=== PATIENT | female | born 1945 | race African-American/Black ===

== ENCOUNTER 2017-05-24 11:49 | Observation (INO) | payer MEDICARE, BC ==
[2017-05-24 12:57] LABS: #Basophils 0.1 thou/uL (0.0-0.2); #Eosinphils 0.1 thou/uL (0.0-0.7); #Lymphocytes 1.8 thou/uL (1.20-3.40); #Monocytes 0.4 thou/uL (0.11-0.59); #Neutrophils 2.5 thou/uL (1.40-6.50); %Basophils 1.3 % (0.0-1.0); %Eosinophils 2.7 % (0.0-10.0); %Lymphocytes 36.9 % (21.0-51.0); %Monocytes 8.8 % (0.0-10.0); Hematocrit 35.8 % (36.0-47.0); Mean Platelet Volume 10.1 fL (7.4-10.4); Red Blood Cell (RBC) Count 4.13 mill/uL (4.20-5.40)
[2017-05-24 13:19] LABS: ALT (SGPT) 12 U/L (8-55); AST (SGOT) 19 U/L (5-34); Alkaline Phosphatase 118 U/L (40-150); Anion Gap 15 mmol/L (10-20); BUN (Urea Nitrogen) 9 mg/dL (9.8-20.1); Bilirubin, Total 0.4 mg/dL (0.2-1.2); CK (CPK) 54 U/L (29-168); Calc. Creatinine Clearance 0 mL/min (70-130); Calcium 8.6 mg/dL (7.8-10.44); Carbon Dioxide 22 mmol/L (23-31); Chloride 109 mmol/L (98-107); Estimated GFR-MDRD 82; Globulin 2.8 g/dL (2.4-3.5); Magnesium 1.8 mg/dL (1.6-2.6); Protein, Total 6.1 g/dL (6.0-8.3)
[2017-05-24 13:23] LABS: Troponin I Less than 0.010 ng/mL (< 0.028)
[2017-05-24] MEDS ORDERED: Acetaminophen 500 MG TAB ONE (13:31)
--- NOTE | 2017-05-24 13:44 | RAD ---
SINGLE VIEW OF THE CHEST 05/24/17 COMPARISON: 05/25/16 HISTORY: Headache. The patient fell last night. Syncope. FINDINGS: Single view of the chest shows a normal sized cardiomediastinal silhouette. There is no evidence of consolidation, mass, or pleural effusion. Degenerative changes are seen in the spine. Surgical clips are seen at the cervicothoracic junction and near the gastroesophageal junction. IMPRESSION: No evidence of acute cardiopulmonary disease. POS: [facility]
--- NOTE | 2017-05-24 13:51 | CT ---
CT OF THE BRAIN WITHOUT CONTRAST 05/24/17 COMPARISON: 12/17/16 HISTORY: Headache after falling last night. Blurry vision. TECHNIQUE: Multiple contiguous axial images were obtained in a CT of the brain without contrast. FINDINGS: The brain is normal in morphology and attenuation without focal lesions or confluent areas of infarc tion. There is no evidence of hydrocephalus, intracranial hemorrhage or extra-axial fluid collection . The calvarium and overlying soft tissues are unremarkable. The visualized paranasal sinuses and mast oid air cells are well aerated. IMPRESSION: No evidence of acute intracranial abnormality. POS: [facility]
[2017-05-24] MEDS ORDERED: Morphine 10 MG/ML VIAL ONE (14:55)
[2017-05-24 16:01] VITALS: BMI 25.0
[2017-05-24 16:25] LABS: Troponin I Less than 0.010 ng/mL (< 0.028)
[2017-05-24] MEDS ORDERED: FLU VACC TS2017-18 (>65YR) 0.5 ML SYRINGE IM ONE (16:45)
[2017-05-24] MEDS ORDERED: Furosemide 20 MG TAB PO PRN (16:53)
[2017-05-24] MEDS ORDERED: Ondansetron ODT 4 MG TAB PO PRN (16:54)
[2017-05-24] MEDS: Acetaminophen/Codeine 30-300mg Tablet PO PRN (17:02)
--- NOTE | 2017-05-24 18:20 | RAD ---
EXAM: RIGHT FEMUR TWO VIEWS 05/24/17 HISTORY: Fall. Pain. Recent knee arthroplasty. FINDINGS: Mild bone demineralization of the distal femur. Uncomplicated right knee arthroplasty. No obvious ef fusion. No fracture. No cortical irregularity or periosteal reaction. IMPRESSION: No fracture. POS: [facility]
--- NOTE | 2017-05-24 18:22 | RAD ---
EXAM: RIGHT KNEE FOUR VIEWS 05/24/17 HISTORY: Fall. Total knee arthroplasty. COMPARISON: 12/17/16. FINDINGS: Mild bone demineralization of the distal femur. No evidence of complication with regard to the arthr oplasty. There is no fracture. There is a trace suprapatellar effusion. IMPRESSION: 1. Trace suprapatellar effusion. 2. Uncomplicated right knee arthroplasty. POS: [facility]
[2017-05-24 19:21] LABS: Troponin I Less than 0.010 ng/mL (< 0.028)
[2017-05-24] MEDS: traZODone HCl 50 MG TAB PO SCH (20:33)
[2017-05-24] MEDS: clonazePAM 0.5 MG TAB PO SCH (20:33)
[2017-05-24] MEDS: Pregabalin 75 MG CAP PO SCH (20:33)
[2017-05-24] MEDS: tiZANidine HCl 4 MG TAB PO PRN (20:33)
[2017-05-25] MEDS: Levothyroxine Sodium 125 MCG TAB PO SCH (04:22)
[2017-05-25] MEDS: Acetaminophen/Codeine 30-300mg Tablet PO PRN ×2 (04:22→11:30)
[2017-05-25] MEDS: Multivitamin W/ Minerals 1 TAB PO SCH (07:44)
[2017-05-25] MEDS: Amlodipine 5 MG TAB PO SCH (07:44)
[2017-05-25] MEDS: Pregabalin 50 MG CAP PO SCH ×2 (07:44→15:46)
[2017-05-25] MEDS: clonazePAM 0.5 MG TAB PO SCH ×2 (07:45→20:14)
[2017-05-25] MEDS: tiZANidine HCl 4 MG TAB PO PRN ×2 (07:50→20:14)
[2017-05-25] MEDS ORDERED: Morphine PF 1 MG/ML SYR IVP PRN (15:09)
[2017-05-25] MEDS ORDERED: Morphine 4 MG/ML VIAL SLOW IVP PRN (15:46)
[2017-05-25] MEDS: traZODone HCl 50 MG TAB PO SCH (20:14)
[2017-05-25] MEDS: Pregabalin 75 MG CAP PO SCH (20:14)
--- NOTE | 2017-05-25 20:52 | ULT ---
CAROTID DOPPLER ULTRASOUND: History: Syncope. Comparison: 05-26-16 Technique: Grayscale, color flow, doppler imaging with spectral waveform analysis performed of the c arotid vertebral arteries. FINDINGS: Right carotid: No significant atherosclerotic disease. Peak systolic velocity of the common carotid is 87.5 cm/sec. Peak systolic velocity internal carotid is 67.5 cm/sec. Systolic ICA/CCA ratio is 0. 8. Left carotid: No significant atherosclerotic disease. Peak systolic velocity of the common carotid a rtery is 85.2 cm/sec. Peak systolic velocity internal carotid is 65.3 cm/sec. Systolic ICA/CCA ratio is 0.8. Antegrade flow in the bilateral vertebral arteries. IMPRESSION: No ultrasound evidence of hemodynamically significant stenosis. POS: [facility]
--- NOTE | 2017-05-25 22:24 | HP ---
DATE OF ADMISSION: 05/24/2017 REASON FOR ADMISSION AND CHIEF COMPLAINT: Syncopal episode. HISTORY OF PRESENT ILLNESS: Ms. King is a 71-year-old -Serbian female with past medical history of hypertension, neuropathy, chronic back pain and hypothyroidism, who came because of patient passed out. The patient felt dizzy and passed out and fell down. The patient says she did not have any chest pain or shortness of breath before passing out, does not remember how long she was out; she thinks it was just a few minutes. When she woke up, she was on the floor and she had to drag herself to the bed and then called the family members. The patient had a total knee replacement of the right knee recently just about a few weeks ago and has been hurting more since she fell down. The pain is more in the right knee and also in the right leg, so the EMS was called and patient was brought to the emergency room. In the ER, the patient was evaluated and found to have normal EKG and cardiac enzymes. She is being admitted to rule out any cardiac arrhythmia or ND in view of her syncopal episode. The patient had syncopal episode last year and workup was done in the past. PAST MEDICAL HISTORY: 1. Hypertension. 2. Chronic back pain. 3. Neuropathy. 4. Hypothyroidism. 5. History of coronary artery disease. 6. History of headaches. 7. History of depression. PAST SURGICAL HISTORY: 1. Status post hysterectomy. 2. Status post neck surgery. 3. Status post total knee replacement, right knee, surgery done recently. 4. Status post cholecystectomy. 5. Status post appendectomy. 6. Status post lumbar spine and cervical spine surgery. CURRENT MEDICATIONS: The patient is on Tylenol with codeine 1 q.i.d. p.r.n., amlodipine 5 mg daily, clonazepam 0.5 mg b.i.d., colestipol 1 gram daily, Lasix 20 mg daily p.r.n., levothyroxine 25 mcg daily, multivitamin daily, Lyrica 100 mg in the morning and 150 at bedtime, propranolol 80 mg daily, tizanidine t.i.d. 4 mg, trazodone 100 mg at bedtime. ALLERGIES: NKDA. FAMILY HISTORY: Nothing of interest. SOCIAL HISTORY: The patient lives with family. No history of smoking. No history of alcohol intake. REVIEW OF SYSTEMS: Cardiovascular: No chest pain. No shortness of breath. Respiratory: No fever or cough. Gastrointestinal: No nausea, no vomiting, no abdominal pain. Genitourinary: No dysuria or hematuria. Central nervous system: Has headache, no dizziness. PHYSICAL EXAMINATION: GENERAL: The patient is alert, awake, oriented x3. VITAL SIGNS: Temperature 98, pulse 60, respirations 20, blood pressure 180/60. HEENT: Head is normocephalic, atraumatic. Pupils are equal and reactive to light. Nasopharynx is pale and dry. Hard and soft palate, no lesions seen. SKIN: Skin turgor decreased. NECK: Supple. No JVD. LUNGS: Bilateral air entry present, no rales, no rhonchi. CARDIAC: S1, S2 regular. ABDOMEN: Soft, no distention, no tenderness. Normal bowel sounds present. RECTAL: Deferred. CENTRAL NERVOUS SYSTEM: The patient is alert, awake, oriented x3. Motor system power 4/5 in all extremities. Deep tendon reflexes 2+ bilaterally. Plantars downgoing. Sensory intact. EXTREMITIES: Right knee area mild swelling present. Surgical incisions present. Mild erythema is markedly tender. Range of movements markedly decreased. LABORATORY AND X-RAY FINDINGS: CBC shows WBC 5, hemoglobin 11.9, hematocrit 35 , platelets 73. Metabolic panel: Sodium 143, potassium 3.4, chloride 109, CO2 of 20, urea nitrogen 9, creatinine 0.9, glucose 82. CK-MB is 0.7, troponin I less than 0.010. Chest x-ray negative. CT brain, no evidence of acute intracranial abnormality. Knee x-ray showed trace suprapatellar effusion and uncomplicated right knee arthroplasty. Femur x-ray, no fracture. EKG shows normal sinus rhythm, no acute ST-T wave changes seen. ASSESSMENT: 1. Syncope, acute, rule out myocardial infarction, rule out cardiac arrhythmia. 2. Right knee pain. 3. Status post total knee replacement, right. 4. Hypertension. 5. Anxiety disorder. 6. Chronic pain. 7. Hypothyroidism. PLAN: 1. Vital signs q.4 hours. 2. Activity: As tolerated. 3. Allergies: NKDA. 4. Diet: Regular. 5. Troponin I q.8 hours x2. 6. Continue home medication. 7. Echocardiogram. 8. Carotid Doppler studies. 9. Morphine p.r.n. MTDD
[2017-05-26] MEDS: Acetaminophen/Codeine 30-300mg Tablet PO PRN ×2 (00:49→08:31)
[2017-05-26] MEDS: Levothyroxine Sodium 125 MCG TAB PO SCH (05:43)
[2017-05-26] MEDS: Pregabalin 50 MG CAP PO SCH ×2 (08:31→11:54)
[2017-05-26] MEDS: clonazePAM 0.5 MG TAB PO SCH (08:32)
[2017-05-26] MEDS: Multivitamin W/ Minerals 1 TAB PO SCH (08:32)
[2017-05-26] MEDS: Amlodipine 5 MG TAB PO SCH (08:33)
[2017-05-26 11:08] VITALS: BP 133/63; TEMP 98.4
[2017-05-26] MEDS: tiZANidine HCl 4 MG TAB PO PRN (11:54)
--- NOTE | 2017-05-27 22:36 | DIS ---
DATE OF ADMISSION: 05/24/2017 DATE OF DISCHARGE: 05/26/2017 ADMITTING DIAGNOSES: 1. Syncopal episode, rule out myocardial infarction, rule out cardiac arrhythmia. 2. Right knee pain. 3. Status post total knee replacement, right, few weeks ago. 4. Hypertension. 5. Anxiety disorder. 6. Chronic back pain. 7. Hypothyroidism. FINAL DIAGNOSES: 1. Syncopal episode, acute, no evidence of acute myocardial infarction, no evidence of cardiac arrh ythmia. 2. Right knee pain, improving. 3. Status post total knee replacement, right side few weeks ago. 4. Hypertension. 5. Anxiety disorder. 6. Chronic pain. 7. Hypothyroidism. BRIEF SUMMARY OF HOSPITAL COURSE: Ms. King is a 71-year-old -[place] female who came wit h chest pain in the retrosternal area, sharp in nature, and associated with some shortness of breath , no diaphoresis, but has some dizziness. The patient was admitted to rule out myocardial infarctio n, also complained of right knee pain. She had total knee placement done a few weeks [facility] after which she started to hurt more in the right knee. Right knee was mildly swollen, but no erythema, no evidence of infection. X-ray of the right knee showed knee replacement in posit ion, no evidence of any marked effusion. The patient was given pain medication and ultimately her knee pain improved. The patient had serial cardiac enzymes done. The second serial troponin was le ss than 0.010, third one also less than 0.010. The patient was started on medications and he tolera sharan medications. Denies evidence of any chest pain. In view of improvement, the patient is dischar [facility] and echocardiogram and Doppler study were also done. Carotid Doppler study revealed no evidence of any hemodynamically significant stenosis. Echocardiogram was reported as normal LV function wit h ejection fraction of 65% and evidence of diastolic dysfunction. So, the patient is being discharg ed home. At the time of discharge, she was stable. Her vital signs were stable. Lungs clear. Hea rt sounds regular. Abdomen soft, nontender. Bowel sounds present. DISCHARGE MEDICATIONS: Include multivitamin daily, Lyrica 100 mg b.i.d., and 150 at bedtime, tizani dine 4 mg t.i.d., clonazepam 0.5 mg b.i.d., amlodipine 5 mg daily, Zofran p.r.n., trazodone 100 mg a t bedtime, Lasix 20 mg daily p.r.n., Tylenol with Codeine 1 q.i.d. p.r.n., omeprazole 40 mg daily, l evothyroxine 125 mcg daily, propranolol 80 mg daily. FOLLOWUP: The patient will come for followup in 2 weeks.
== END 2017-05-26 12:02 | disposition home or self-care (01) ==
LOC: ERS 11:49 → 2SW 15:29
PROVIDERS: ADMIT Internal Medicine; ATTEND Internal Medicine
DX: R55 Syncope and collapse (principal); M25.561 Pain in right knee; I10 Essential (primary) hypertension; F41.9 Anxiety disorder, unspecified; G89.29 Other chronic pain; E03.9 Hypothyroidism, unspecified; R07.2 Precordial pain; G62.9 Polyneuropathy, unspecified; I25.10 Atherosclerotic heart disease of native coronary artery without angina pectoris; F32.9 Major depressive disorder, single episode, unspecified; Z79.899 Other long term (current) drug therapy; Z96.651 Presence of right artificial knee joint; Z90.49 Acquired absence of other specified parts of digestive tract; Z90.710 Acquired absence of both cervix and uterus; Z98.890 Other specified postprocedural states
CPT/HCPCS: 70450; 71010; 73552; 73564; 80053; 82550; 82553; 83735; 84484 ×2; 85025; 93005; 93306; 93880; 96374; 96376; 99285; G0378; 36415; J2270

== ENCOUNTER 2017-09-23 11:44 | Outpatient (CLI) | payer MEDICARE, BC | END 2017-09-23 11:45 | disposition home or self-care (01) | LOC: BICMAMMO 11:44 | PROVIDERS: ATTEND Obstetrics & Gynecology | DX: Z12.31 Encounter for screening mammogram for malignant neoplasm of breast (principal) | CPT/HCPCS: 77063; 77067 ==

== ENCOUNTER 2017-11-03 10:18 | Outpatient (CLI) | payer MEDICARE, BC | END 2017-11-03 10:19 | disposition home or self-care (01) | LOC: BICMRI 10:18 | PROVIDERS: ATTEND Anesthesiology Pain Medicine | DX: M48.00 Spinal stenosis, site unspecified (principal); M47.892 Other spondylosis, cervical region; Z98.1 Arthrodesis status | CPT/HCPCS: 72052; 72141 ==

== ENCOUNTER 2018-03-05 14:36 | Emergency (ER) | payer MEDICARE, BC ==
[2018-03-05 15:25] LABS: #Basophils 0.1 thou/uL (0.0-0.2); #Eosinphils 0.1 thou/uL (0.0-0.7); #Lymphocytes 1.3 thou/uL (1.20-3.40); #Monocytes 0.4 thou/uL (0.11-0.59); #Neutrophils 2.7 thou/uL (1.40-6.50); %Basophils 1.5 % (0.0-1.0); %Eosinophils 1.8 % (0.0-10.0); %Lymphocytes 28.9 % (21.0-51.0); %Monocytes 8.4 % (0.0-10.0); %Neutrophils 59.4 % (42.0-75.0); Hemoglobin 11.5 g/dL (12.0-16.0); Mean Corpuscular HGB CONC 32.8 g/dL (32.0-36.0); Mean Corpuscular Hemoglobin 28.1 pg (27.0-31.0); Mean Corpuscular Volume 85.8 fL (78.0-98.0); Mean Platelet Volume 9.8 fL (7.4-10.4); Platelet Count 161 thou/uL (130-400); RBC Distribution Width 12.5 % (11.5-14.5); Red Blood Cell (RBC) Count 4.07 mill/uL (4.20-5.40); White Blood Cell (WBC) Count 4.5 thou/uL (4.8-10.8)
--- NOTE | 2018-03-05 15:30 | RAD ---
PORTABLE CHEST 1 VIEW: Date: 03/05/18 Time: 1446 hours HISTORY: Fall. Pain in head, neck, and back. Bradycardia. FINDINGS: Comparison made with exam of 05/24/17. The heart size is normal. The aorta is tortuous. No confluent areas of consolidation, pneumothorax, o r pleural effusions are seen. There are postop changes in the low neck. IMPRESSION: No acute process. POS: [facility]
[2018-03-05 15:39] LABS: ALT (SGPT) 19 U/L (8-55); AST (SGOT) 25 U/L (5-34); Albumin 3.1 g/dL (3.4-4.8); Alkaline Phosphatase 118 U/L (40-150); Anion Gap 13 mmol/L (10-20); BUN (Urea Nitrogen) 15 mg/dL (9.8-20.1); Bilirubin, Total 0.3 mg/dL (0.2-1.2); CK (CPK) 62 U/L (29-168); Calc. Creatinine Clearance 0 mL/min (70-130); Calcium 7.8 mg/dL (7.8-10.44); Carbon Dioxide 22 mmol/L (23-31); Chloride 108 mmol/L (98-107); Estimated GFR-MDRD 63; Globulin 1.9 g/dL (2.4-3.5); Glucose 108 mg/dL (83-110); Potassium 3.9 mmol/L (3.5-5.1); Sodium 139 mmol/L (136-145)
[2018-03-05 15:43] LABS: Troponin I Less than 0.010 ng/mL (< 0.028)
[2018-03-05 16:46] LABS: Bilirubin Negative (Negative); Blood, Urine Negative (Negative); Clarity CLOUDY (Clear); Glucose, Urine (Dipstick) Negative (Negative); Leukocyte Small (Negative); Nitrite Negative (Negative); Protein, Urine (Dipstick) Negative (Neg-Trace); Specific Gravity, Urine 1.019 (1.002-1.036); Urobilinogen 0.2 mg/dL (0.2-1.0); pH, Urine 6.5 (5.0-9.0)
[2018-03-05 16:50] LABS: Hyaline Casts/LPF 0-3 HYALINE CAST LPF (0-3 Hyaline); Pathc Cast-AUWi Flag 0.58 (0-2.49)
[2018-03-05 17:06] LABS: Bacteria/HPF 3+ HPF (None Seen); Renal Epithelial None Seen HPF (0-3); Transitional Epithelial NONE SEEN HPF (0-3)
[2018-03-05] MEDS ORDERED: cefTRIAXone\\ROCEPHIN 1 GM in Sodium Chloride 0.9% 100 ML IVPB SCH (18:00)
--- NOTE | 2018-03-07 16:38 | EKG ---
Test Reason : Blood Pressure : / mmHG Vent. Rate : 056 BPM Atrial Rate : 056 BPM P-R Int : 162 ms QRS Dur : 082 ms QT Int : 492 ms P-R-T Axes : 060 009 001 degrees QTc Int : 474 ms Sinus bradycardia Septal infarct , age undetermined Abnormal ECG Confirmed by IDA HERNANDEZ ([id number]), sports editor TRE SKINNER ([id number]) on 03/07/2018 4:37:29 PM Referred By: Confirmed By:IDA HERNANDEZ
== END 2018-03-05 19:50 | disposition home or self-care (01) ==
LOC: ERS 14:36
DX: N39.0 Urinary tract infection, site not specified (principal); I10 Essential (primary) hypertension; F41.9 Anxiety disorder, unspecified; Z79.899 Other long term (current) drug therapy; Z86.73 Personal history of transient ischemic attack (TIA), and cerebral infarction without residual deficits
CPT/HCPCS: 36415; 71045; 80053; 81003; 81015; 82550; 82553; 84484; 85025; 87086; 93005; 96374; J0696; J7050

== ENCOUNTER 2018-03-25 10:23 | Outpatient (CLI) | payer MEDICARE, BC ==
--- NOTE | 2018-03-25 11:17 | RAD ---
LUMBAR SPINE THREE VIEWS: 03/25/2018 HISTORY: Lumbar degenerative disk disease. COMPARISON: 03/10/2013 FINDINGS: Postsurgical changes are again seen, related to posterior fusion at the L4-L5 level, with bipedicular screws and posterior rods transfixing this level. An intradiskal prosthesis is again seen, overlyin g the right lateral aspect of the intervertebral disk space at this level. No hardware complication is visualized. Vertebral body heights are within normal limits, and no fracture or subluxation is ap preciated. There are scattered osteophytes within the lumbar spine, as well as facet degenerative ch anges, greatest at the lumbosacral junction. Multiple surgical clips again overly the abdomen. Vasc ular calcifications are seen overlying the pelvis. There has been no significant interval change fro m the prior exam. IMPRESSION: Post surgical changes related to posterior fusion at the L4-L5 level with mild degenerative changes i n the lumbar spine. POS: [facility]
--- NOTE | 2018-03-25 11:58 | RAD ---
3 VIEWS CERVICAL SPINE: Date: 03/25/18 HISTORY: Spondylosis of cervical region. COMPARISON: 05/30/11. FINDINGS: Again noted is anterior cervical fusion at C5-6 level with anterior plate and screws again seen with associated intradiscal prosthesis. No hardware complication is seen. C1 to cervicothoracic junction i s seen on the lateral view. No fracture or subluxation is seen. Scattered osteophytes are seen anteri radhika within the cervical spine. Prevertebral soft tissues are within normal limits. Multiple surgical clips overlie the anterior aspect of the neck. IMPRESSION: 1. Stable postsurgical changes of the cervical spine with anterior cervical fusion at the C5-6 level . 2. Mild degenerative changes in the cervical spine. POS: [facility]
== END 2018-03-25 10:24 | disposition home or self-care (01) ==
LOC: RAD 10:23
PROVIDERS: ATTEND Nurse Practitioner Family
DX: M51.36 Other intervertebral disc degeneration, lumbar region (principal); M47.812 Spondylosis without myelopathy or radiculopathy, cervical region; Z98.1 Arthrodesis status
CPT/HCPCS: 72040; 72100

== ENCOUNTER 2018-03-28 10:46 | Emergency (ER) | payer MEDICARE, BC ==
[2018-03-28] MEDS ORDERED: Ibuprofen 200 MG TAB ONE (11:24)
--- NOTE | 2018-03-28 12:36 | RAD ---
PORTABLE CHEST: Date: 03/28/18 PROVIDED CLINICAL HISTORY: Back pain. FINDINGS: Comparison with 03/05/18. Cardiac and mediastinal silhouette is within normal limits. Lungs appear clear. No pleural fluid or p neumothorax apparent. IMPRESSION: No evidence for an acute cardiopulmonary process. POS: [facility]
--- NOTE | 2018-03-28 12:40 | RAD ---
2 VIEWS RIGHT HIP: Date: 03/28/18 PROVIDED CLINICAL HISTORY: Right hip pain. FINDINGS: There is no evidence for fracture or other acute osseous abnormality. If there is persistent clinical concern, conservative management and follow-up imaging are advised. IMPRESSION: As above. POS: [facility]
[2018-03-28] MEDS ORDERED: HYDROcodone/Acetaminophen 7.5/325 mg Tablet ONE (13:07)
[2018-03-28] MEDS ORDERED: Ketorolac Tromethamine 30 MG/ML VIAL ONE (15:04)
--- NOTE | 2018-04-04 11:18 | EKG ---
Test Reason : Blood Pressure : / mmHG Vent. Rate : 063 BPM Atrial Rate : 063 BPM P-R Int : 140 ms QRS Dur : 068 ms QT Int : 378 ms P-R-T Axes : 045 000 031 degrees QTc Int : 386 ms Normal sinus rhythm Possible Left atrial enlargement Septal infarct , age undetermined Abnormal ECG Confirmed by EDENILSON MOODY M.D. ([id number]), tape editor JOSEPHINE SALMERON ([id number]) on 04/04/2018 11:18:23 AM Referred By: Confirmed By:EDENILSON MOODY M.D.
== END 2018-03-28 15:22 | disposition home or self-care (01) ==
LOC: ERS 10:46
DX: M54.5 Low back pain (principal); M25.551 Pain in right hip; F41.9 Anxiety disorder, unspecified; I10 Essential (primary) hypertension; Z79.899 Other long term (current) drug therapy; W18.30XA Fall on same level, unspecified, initial encounter
CPT/HCPCS: 71045; 93005; 96372; J1885

== ENCOUNTER 2018-12-27 13:37 | Emergency (ER) | payer MEDICARE, BC ==
[2018-12-27] MEDS ORDERED: Ketorolac Tromethamine 30 MG/ML VIAL ONE (14:18)
[2018-12-27] MEDS ORDERED: HYDROcodone/Acetaminophen 7.5/325 mg Tablet ONE (14:18)
== END 2018-12-27 16:54 | disposition home or self-care (01) ==
LOC: ERS 13:37
DX: M54.41 Lumbago with sciatica, right side (principal); I10 Essential (primary) hypertension; Z86.73 Personal history of transient ischemic attack (TIA), and cerebral infarction without residual deficits; F41.9 Anxiety disorder, unspecified; Z79.899 Other long term (current) drug therapy
CPT/HCPCS: 96372; J1885

== ENCOUNTER 2019-01-08 19:07 | Emergency (ER) | payer MEDICARE, BC ==
[2019-01-08] MEDS ORDERED: Morphine 4 MG/ML VIAL ONE (19:23)
[2019-01-08] MEDS ORDERED: Lidocaine 1% w/Epinephrine 1:100K 20 ML VIAL ONE (19:23)
[2019-01-08 19:57] LABS: #Eosinphils 0.1 thou/uL (0.0-0.7); #Lymphocytes 1.5 thou/uL (1.20-3.40); #Monocytes 0.4 thou/uL (0.11-0.59); %Basophils 0.2 % (0.0-1.0); %Eosinophils 1.2 % (0.0-10.0); %Lymphocytes 25.3 % (21.0-51.0); %Monocytes 6.4 % (0.0-10.0); %Neutrophils 66.8 % (42.0-75.0); Hemoglobin 12.4 g/dL (12.0-16.0); Mean Corpuscular HGB CONC 32.9 g/dL (32.0-36.0); Mean Corpuscular Volume 85.2 fL (78.0-98.0); Mean Platelet Volume 11.7 fL (7.4-10.4); Platelet Count 142 thou/uL (130-400); RBC Distribution Width 12.6 % (11.5-14.5); Red Blood Cell (RBC) Count 4.42 mill/uL (4.20-5.40); White Blood Cell (WBC) Count 6.1 thou/uL (4.8-10.8)
--- NOTE | 2019-01-08 20:10 | CT ---
Exam: Cervical spine CT scan without IV contrast: HISTORY: Injury from a mechanical fall FINDINGS: Anterior cervical fusion changes at C5-C6. Extensive surgical clips in the anterior neck with resulta nt artifact. Generalized cervical spondylosis. No evidence for acute fracture or facet dislocation. IMPRESSION: No evidence for acute fracture or facet dislocation. Generalized cervical spondylosis. Anterior cervi greg fusion changes.
--- NOTE | 2019-01-08 20:11 | CT ---
HEAD CT WITHOUT CONTRAST: 01/08/19 HISTORY: Fall. Pain. COMPARISON: 05/24/17. FINDINGS: No parenchymal hemorrhage. No extra-axial hematoma. No midline shift. Basilar cisterns are patent. Brain volume, age appropriate. Cortical pena-white matter differentiation is preserved. Ventricles and sulci are patent and symmetric. Anterior midline scalp hematoma. Calvarium is intact. Adequate aeration of the sinuses and mastoid air cells. IMPRESSION: No intracranial posttraumatic sequela. POS: [facility]
--- NOTE | 2019-01-08 20:20 | RAD ---
Chest one view: HISTORY: Injury from a fall COMPARISON: 03/28/2018 FINDINGS: Cervical collar overlies the cervical thoracic junction. Surgical clips in the anterior neck. Postop anterior cervical fusion changes lower cervical spine. Heart size is normal. The lungs are clear. IMPRESSION: No significant acute intrathoracic disease. Atherosclerosis of the aorta.
--- NOTE | 2019-01-08 20:23 | RAD ---
EXAM: AP pelvis one view: HISTORY: Injury from a fall COMPARISON: None FINDINGS: Degenerative changes. No acute fracture or dislocation or other significant acute osseous abnormality. IMPRESSION: No significant acute process.
[2019-01-08] MEDS ORDERED: Adacel (T-DAP) 0.5 ML SYRINGE ONE (20:24)
--- NOTE | 2019-01-08 20:24 | RAD ---
EXAM: Right wrist 2 views: HISTORY: Injury from a fall COMPARISON: None FINDINGS: Bony demineralization. Degenerative changes. No acute fracture or dislocation or other significant acute osseous abnormality. IMPRESSION: No significant acute process.
--- NOTE | 2019-01-08 20:25 | RAD ---
LEFT KNEE FOUR VIEWS: 01/08/19 HISTORY: Fall, pain. FINDINGS: Bone excrescence involving the medial distal femur may represent an osteochondroma. Joint spaces are preserved. No fracture or malalignment. IMPRESSION: 1. No posttraumatic change. 2. Possible incidental osteochondroma of the medial distal femur. POS: [facility]
[2019-01-08] MEDS ORDERED: Ketorolac Tromethamine 30 MG/ML VIAL ONE (21:20)
[2019-01-08 21:23] LABS: Bilirubin Small (Negative); Blood, Urine Negative (Negative); Clarity TURBID (Clear); Glucose, Urine (Dipstick) Negative (Negative); Leukocyte Small (Negative); Nitrite Negative (Negative); Protein, Urine (Dipstick) Negative (Neg-Trace); Urobilinogen 0.2 mg/dL (0.2-1.0)
[2019-01-08 21:25] LABS: Hyaline Casts/LPF 7-10 HYALINE CAST LPF (0-3 Hyaline); Pathc Cast-AUWi Flag 0.95 (0-2.49)
[2019-01-08 21:45] LABS: RBC/HPF 0-3 HPF (0-3)
[2019-01-08 21:46] LABS: Bacteria/HPF Rare-Few HPF (None Seen); Crystals/HPF 3+ CA OXALATE HPF (Negative)
[2019-01-08 21:53] LABS: Albumin 3.7 g/dL (3.4-4.8)
[2019-01-08 21:54] LABS: Calcium 8.8 mg/dL (7.8-10.44); Chloride 109 mmol/L (98-107); Potassium 3.3 mmol/L (3.5-5.1); Sodium 143 mmol/L (136-145)
[2019-01-08 21:55] LABS: Globulin 2.4 g/dL (2.4-3.5); Glucose 82 mg/dL (83-110); Protein, Total 6.1 g/dL (6.0-8.3)
[2019-01-08 21:57] LABS: Anion Gap 14 mmol/L (10-20); Bilirubin, Total 0.4 mg/dL (0.2-1.2); Carbon Dioxide 23 mmol/L (23-31)
[2019-01-08 21:58] LABS: Alkaline Phosphatase 136 U/L (40-150); Calc. Creatinine Clearance 0 mL/min (70-130); Estimated GFR-MDRD 48
[2019-01-08 21:59] LABS: BUN (Urea Nitrogen) 19 mg/dL (9.8-20.1)
[2019-01-08 22:00] LABS: AST (SGOT) 24 U/L (5-34)
[2019-01-08 22:01] LABS: ALT (SGPT) 24 U/L (8-55)
== END 2019-01-09 00:24 | disposition home or self-care (01) ==
LOC: ERS 19:07
DX: S06.0X9A Concussion with loss of consciousness of unspecified duration, initial encounter (principal); S01.111A Laceration without foreign body of right eyelid and periocular area, initial encounter; S80.02XA Contusion of left knee, initial encounter; I10 Essential (primary) hypertension; F41.9 Anxiety disorder, unspecified; Z79.899 Other long term (current) drug therapy; W18.30XA Fall on same level, unspecified, initial encounter
CPT/HCPCS: 36415; 70450; 71045; 72125; 72170; 80053; 81003; 81015; 84484; 85025; 90471; 90715; 93005; 96372; 96374; J1885; J2001; J2270

== ENCOUNTER 2019-08-06 13:34 | Outpatient (CLI) | payer MEDICARE, BC ==
--- NOTE | 2019-08-06 15:06 | RAD ---
LEFT ANKLE 3 VIEWS: Date: 08/06/2019 HISTORY: Ankle pain. COMPARISON: None. FINDINGS: There are mild soft tissue phleboliths. No acute displaced fracture or malalignment. Mild narrowing o f the ankle joint itself. Small dorsal and plantar calcaneal spurs. Bones are demineralized. IMPRESSION: No acute osseous abnormality. Chronic findings. POS: [facility]
--- NOTE | 2019-08-06 15:12 | MRI ---
MRI CERVICAL SPINE WITHOUT CONTRAST: Date: 08/06/2019 HISTORY: M54.12 cervical radicular pain. History of surgery. COMPARISON: CT cervical spine 01/08/19. FINDINGS: The cerebellar tonsils terminate at the level of the foramen magnum. The cord signal is normal. No co rd impingement. No marrow infiltrative process. There is narrowing of the atlantodental interval. No facet capsular injury. No intraspinous or supraspinous ligamentous injury. The prevertebral soft t issues are normal. Levels are as follow: C2-3: Normal disc. No neural foraminal or spinal canal narrowing. C3-4: Relatively normal disc for age. No neural foraminal or spinal canal narrowing. C4-5: Mild degenerative disc space height loss. There is a broad based posterior disc osteophyte com plex, very mild. Mild uncinate process hypertrophy. No neural foraminal or spinal canal narrowing. C5-6: Prior ACDF with interbody fusion. No neural foraminal or spinal canal narrowing. C6-7: Mild disc desiccation and height loss. Mild uncinate process hypertrophy. No neural foraminal or spinal canal narrowing. C7-T1: Mild disc desiccation. 1 mm anterolisthesis from hypertrophic facet arthrosis. No neural fora solis or spinal canal narrowing. IMPRESSION: 1. Intact surgical hardware. 2. No significant neural foraminal or spinal canal narrowing is appreciated on this exam at any leve l. POS: [facility]
== END 2019-08-06 13:35 | disposition home or self-care (01) ==
LOC: TBSIIMAG 13:34
PROVIDERS: ATTEND Nurse Practitioner Family
DX: M25.572 Pain in left ankle and joints of left foot (principal); M54.12 Radiculopathy, cervical region; Z98.1 Arthrodesis status
CPT/HCPCS: 72141

== ENCOUNTER 2019-09-21 11:25 | Outpatient (CLI) | payer MEDICARE, BC ==
--- NOTE | 2019-09-21 11:51 | RAD ---
2 views left ankle: 09/21/2019 COMPARISON: None HISTORY: Ankle sprain FINDINGS: There is soft tissue swelling seen laterally, distal to the lateral malleolus. There is no displaced fracture or evidence of dislocation. Anterior soft tissue swelling is noted on the lateral examination. IMPRESSION: Soft tissue swelling with no displaced fracture or evidence of dislocation.
--- NOTE | 2019-09-21 11:54 | RAD ---
2 views of the left knee: 09/21/2019 COMPARISON: None HISTORY: Left knee pain FINDINGS: No knee joint effusion. No displaced fracture or evidence of dislocation. There is linear calcification at the level the medial femoral condyle suggesting MCL calcification on the basis of a prior injury. There is mild medial and lateral compartment narrowing as well as mild patellofemoral joint space narrowing. IMPRESSION: No acute fracture or dislocation. Degenerative change as above.
== END 2019-09-21 11:26 | disposition home or self-care (01) ==
LOC: BICRAD 11:25
PROVIDERS: ATTEND Anesthesiology Pain Medicine
DX: S93.402A Sprain of unspecified ligament of left ankle, initial encounter (principal); M17.12 Unilateral primary osteoarthritis, left knee; M79.89 Other specified soft tissue disorders

== ENCOUNTER 2020-06-02 11:01 | Outpatient (CLI) | payer MEDICARE, BC ==
--- NOTE | 2020-06-02 11:30 | RAD ---
Exam: Left ankle 3 views: HISTORY: Effusion left ankle burning and numbness COMPARISON: 08/06/2019 FINDINGS: Medial and lateral soft tissue swelling No evidence for fracture, dislocation, or other significant acute osseous abnormality. IMPRESSION: No significant acute process.
--- NOTE | 2020-06-02 11:33 | RAD ---
Exam: Right ankle 3 views: HISTORY: Effusion right ankle COMPARISON: None FINDINGS: Medial and lateral ankle soft tissue swelling. Minimal degenerative and osteoarthrosis change. No evidence for fracture, dislocation, or other significant acute osseous abnormality. IMPRESSION: No significant acute process.
== END 2020-06-02 11:02 | disposition home or self-care (01) ==
LOC: BICRAD 11:01
PROVIDERS: ATTEND Nurse Practitioner Family
DX: M25.471 Effusion, right ankle (principal); M25.472 Effusion, left ankle

== ENCOUNTER 2020-10-23 10:35 | Outpatient (CLI) | payer MEDICARE ==
[2020-10-23] MEDS ORDERED: Magnevist 469MG/ML 20 ML VIAL ONE (15:00)
== END 2020-10-23 10:36 | disposition home or self-care (01) ==
LOC: BICMRI 10:35
PROVIDERS: ATTEND Anesthesiology Pain Medicine
DX: M50.30 Other cervical disc degeneration, unspecified cervical region (principal); M47.812 Spondylosis without myelopathy or radiculopathy, cervical region; Z98.890 Other specified postprocedural states
CPT/HCPCS: 72158; 82565; A9579

== ENCOUNTER 2020-11-01 17:50 | Emergency (ER) | payer MEDICARE ==
[2020-11-01] MEDS ORDERED: traMADol HCl 50 MG TAB ONE ×2 (20:26→20:28)
== END 2020-11-01 20:56 | disposition home or self-care (01) ==
LOC: ERS 17:50
DX: T23.102A Burn of first degree of left hand, unspecified site, initial encounter (principal); T23.172A Burn of first degree of left wrist, initial encounter; T31.0 Burns involving less than 10% of body surface; I10 Essential (primary) hypertension; Z86.73 Personal history of transient ischemic attack (TIA), and cerebral infarction without residual deficits; Z79.899 Other long term (current) drug therapy; X10.2XXA Contact with fats and cooking oils, initial encounter
CPT/HCPCS: 99283

== ENCOUNTER 2021-04-12 10:13 | Outpatient (CLI) | payer MEDICARE | END 2021-04-12 10:14 | disposition home or self-care (01) | LOC: BICMAMMO 10:13 | PROVIDERS: ATTEND Obstetrics & Gynecology | DX: N64.4 Mastodynia (principal) | CPT/HCPCS: 77066; G0279 ==

== ENCOUNTER 2021-09-04 11:04 | Emergency (ER) | payer MEDICARE ==
[2021-09-04] MEDS ORDERED: HYDROcodone/Acetaminophen 5/325 mg Tablet ONE (12:45)
[2021-09-04 12:57] LABS: #Eosinphils 0.1 thou/uL (0.0-0.7); #Lymphocytes 1.3 thou/uL (1.20-3.40); #Monocytes 0.4 thou/uL (0.11-0.59); #Neutrophils 2.6 thou/uL (1.40-6.50); %Basophils 0.6 % (0.0-1.0); %Eosinophils 1.4 % (0.0-10.0); %Lymphocytes 30.3 % (21.0-51.0); %Monocytes 9.1 % (0.0-10.0); %Neutrophils 58.6 % (42.0-75.0); Hemoglobin 13.4 g/dL (12.0-16.0); Mean Corpuscular Hemoglobin 29.3 pg (27.0-31.0); Mean Corpuscular Volume 91.4 fL (78.0-98.0); Mean Platelet Volume 9.9 fL (7.4-10.4); Platelet Count 192 thou/uL (130-400); RBC Distribution Width 12.7 % (11.5-14.5); Red Blood Cell (RBC) Count 4.56 mill/uL (4.20-5.40); White Blood Cell (WBC) Count 4.4 thou/uL (4.8-10.8)
[2021-09-04 13:33] LABS: ALT (SGPT) 21 U/L (8-55); AST (SGOT) 22 U/L (5-34); Albumin 3.5 g/dL (3.4-4.8); Alkaline Phosphatase 106 U/L (40-110); Anion Gap 14 mmol/L (10-20); BUN (Urea Nitrogen) 17 mg/dL (9.8-20.1); Bilirubin, Total 0.3 mg/dL (0.2-1.2); Calc. Creatinine Clearance 0 mL/min (70-130); Calcium 8.5 mg/dL (7.8-10.44); Carbon Dioxide 24 mmol/L (23-31); Chloride 108 mmol/L (98-107); Globulin 2.1 g/dL (2.4-3.5); Glucose 98 mg/dL (83-110); Lipase 37 U/L (8-78); Potassium 4.9 mmol/L (3.5-5.1); Protein, Total 5.6 g/dL (5.8-8.1); Sodium 141 mmol/L (136-145)
== END 2021-09-04 15:04 | disposition home or self-care (01) ==
LOC: ERS 11:04
DX: S09.90XA Unspecified injury of head, initial encounter (principal); S42.101A Fracture of unspecified part of scapula, right shoulder, initial encounter for closed fracture; I10 Essential (primary) hypertension; E03.9 Hypothyroidism, unspecified; Z79.899 Other long term (current) drug therapy; W19.XXXA Unspecified fall, initial encounter
CPT/HCPCS: 36415; 70450; 71045; 72125; 80053; 83690; 84484; 85025; 93005; 94760

== ENCOUNTER 2021-11-20 09:22 | Outpatient (CLI) | payer MEDICARE | END 2021-11-20 09:23 | disposition home or self-care (01) | LOC: BICMAMMO 09:22 | PROVIDERS: ATTEND Family Medicine | DX: Z13.820 Encounter for screening for osteoporosis (principal); M81.0 Age-related osteoporosis without current pathological fracture | CPT/HCPCS: 77080 ==

== ENCOUNTER 2022-01-22 16:39 | Emergency (ER) | payer MEDICARE ==
[2022-01-22] MEDS ORDERED: HYDROcodone/Acetaminophen 10/325 mg Tablet ONE (18:30)
== END 2022-01-22 18:47 | disposition home or self-care (01) ==
LOC: ERS 16:39
DX: M79.89 Other specified soft tissue disorders (principal); I10 Essential (primary) hypertension; G62.9 Polyneuropathy, unspecified; E03.9 Hypothyroidism, unspecified; K21.9 Gastro-esophageal reflux disease without esophagitis; Z86.73 Personal history of transient ischemic attack (TIA), and cerebral infarction without residual deficits; Z79.899 Other long term (current) drug therapy; Z87.81 Personal history of (healed) traumatic fracture

== ENCOUNTER 2022-04-03 13:56 | Emergency (ER) | payer OTHER, MEDICARE ==
[2022-04-03] MEDS ORDERED: Ketorolac Tromethamine 30 MG/ML VIAL ONE (15:15)
== END 2022-04-03 15:37 | disposition home or self-care (01) ==
LOC: ERS 13:56
DX: M54.50 Low back pain, unspecified (principal); I10 Essential (primary) hypertension; E03.9 Hypothyroidism, unspecified; K21.9 Gastro-esophageal reflux disease without esophagitis; G62.9 Polyneuropathy, unspecified; W01.0XXA Fall on same level from slipping, tripping and stumbling without subsequent striking against object, initial encounter; Z86.73 Personal history of transient ischemic attack (TIA), and cerebral infarction without residual deficits; Z79.899 Other long term (current) drug therapy
CPT/HCPCS: 72125; 72128; 72131; 72170; 96372; J1885

== ENCOUNTER 2022-05-20 09:50 | Outpatient (CLI) | payer MEDICARE | END 2022-05-20 09:51 | disposition home or self-care (01) | LOC: MRI 09:50 | PROVIDERS: ATTEND Anesthesiology Pain Medicine | DX: M47.26 Other spondylosis with radiculopathy, lumbar region (principal); M47.817 Spondylosis without myelopathy or radiculopathy, lumbosacral region; M47.815 Spondylosis without myelopathy or radiculopathy, thoracolumbar region; Z98.890 Other specified postprocedural states | CPT/HCPCS: 72148 ==

== ENCOUNTER 2022-10-29 13:45 | Outpatient (CLI) | payer MEDICARE | END 2022-10-29 13:46 | disposition home or self-care (01) | LOC: RAD 13:45 | PROVIDERS: ATTEND Internal Medicine Critical Care Medicine | DX: R06.00 Dyspnea, unspecified (principal) | CPT/HCPCS: 71046 ==

== ENCOUNTER 2023-01-16 09:23 | Emergency (ER) | payer MEDICARE ==
[2023-01-16] MEDS ORDERED: Acetaminophen 325 MG TAB ONE (09:33)
[2023-01-16] MEDS ORDERED: predniSONE 20 MG TAB ONE (09:33)
== END 2023-01-16 09:53 | disposition home or self-care (01) ==
LOC: ERS 09:23
DX: T63.461A Toxic effect of venom of wasps, accidental (unintentional), initial encounter (principal); I10 Essential (primary) hypertension; E03.9 Hypothyroidism, unspecified; K21.9 Gastro-esophageal reflux disease without esophagitis; Z86.73 Personal history of transient ischemic attack (TIA), and cerebral infarction without residual deficits; Z79.899 Other long term (current) drug therapy
CPT/HCPCS: 99282; J7512

== ENCOUNTER 2023-02-13 08:10 | Emergency (ER) | payer MEDICARE ==
[2023-02-13] MEDS ORDERED: Acetaminophen 500 MG TAB ONE (09:08)
[2023-02-13 09:15] LABS: #Eosinphils 0.1 thou/uL (0.0-0.7); #Monocytes 0.3 thou/uL (0.11-0.59); %Basophils 0.8 % (0.0-1.0); %Eosinophils 1.8 % (0.0-10.0); %Lymphocytes 30.5 % (21.0-51.0); %Monocytes 5.5 % (0.0-10.0); Hemoglobin 12.7 g/dL (12.0-16.0); Mean Corpuscular HGB CONC 31.9 g/dL (32.0-36.0); Mean Corpuscular Hemoglobin 27.7 pg (27.0-31.0); Mean Corpuscular Volume 86.7 fl (78.0-98.0); Mean Platelet Volume 12.5 fL (7.4-10.4); Platelet Count 255 10x3/uL (130-400); RBC Distribution Width 13.9 % (11.5-14.5); Red Blood Cell (RBC) Count 4.59 mill/uL (4.20-5.40); White Blood Cell (WBC) Count 4.9 10x3/uL (4.8-10.8)
[2023-02-13 09:39] LABS: ALT (SGPT) 33 U/L (8-55); AST (SGOT) 41 U/L (5-34); Albumin 3.6 g/dL (3.4-4.8); Alkaline Phosphatase 93 U/L (40-110); Anion Gap 11 mmol/L (10-20); BUN (Urea Nitrogen) 31 mg/dL (9.8-20.1); Bilirubin, Total 0.5 mg/dL (0.2-1.2); Calc. Creatinine Clearance 0 mL/min (70-130); Calcium 9.1 mg/dL (7.8-10.44); Carbon Dioxide 30 mmol/L (23-31); Chloride 109 mmol/L (98-107); Estimated GFR 33; Globulin 2.2 g/dL (2.4-3.5); Glucose 97 mg/dL (83-110); Potassium 4.1 mmol/L (3.5-5.1); Protein, Total 5.8 g/dL (5.8-8.1); Sodium 146 mmol/L (136-145)
[2023-02-13] MEDS ORDERED: Morphine 4 MG/ML VIAL ONE (11:50)
[2023-02-13] MEDS ORDERED: Iopamidol 370 76% 100 ML VIAL ONE (13:49)
== END 2023-02-13 12:40 | disposition home or self-care (01) ==
LOC: ERS 08:10
DX: M54.2 Cervicalgia (principal); I10 Essential (primary) hypertension; K21.9 Gastro-esophageal reflux disease without esophagitis; E03.9 Hypothyroidism, unspecified; Z79.899 Other long term (current) drug therapy; Z86.73 Personal history of transient ischemic attack (TIA), and cerebral infarction without residual deficits
CPT/HCPCS: 36415; 70450; 70498; 72125; 72170; 80053; 85025; 96361; 96374; J2270; Q9967

== ENCOUNTER 2023-05-12 13:22 | Outpatient (CLI) | payer MEDICARE | END 2023-05-12 13:23 | disposition home or self-care (01) | LOC: BICMRI 13:22 | PROVIDERS: ATTEND Neurological Surgery | DX: M50.31 Other cervical disc degeneration, high cervical region (principal); M25.511 Pain in right shoulder; M50.321 Other cervical disc degeneration at C4-C5 level; S46.911A Strain of unspecified muscle, fascia and tendon at shoulder and upper arm level, right arm, initial encounter; M19.011 Primary osteoarthritis, right shoulder; M75.41 Impingement syndrome of right shoulder | CPT/HCPCS: 72141 ==

== ENCOUNTER 2023-06-23 09:58 | Outpatient (CLI) | payer MEDICARE | END 2023-06-23 09:59 | disposition home or self-care (01) | LOC: BICMAMMO 09:58 | PROVIDERS: ATTEND Nurse Practitioner Family | DX: N64.4 Mastodynia (principal) | CPT/HCPCS: 77066; G0279 ==

== ENCOUNTER 2023-12-18 11:03 | Outpatient (CLI) | payer MEDICARE ==
[2023-12-18] MEDS ORDERED: Iopamidol 370 76% 100 ML VIAL ONE (11:34)
== END 2023-12-18 11:04 | disposition home or self-care (01) ==
LOC: BICCT 11:03
PROVIDERS: ATTEND Internal Medicine Gastroenterology
DX: K52.9 Noninfective gastroenteritis and colitis, unspecified (principal); D36.9 Benign neoplasm, unspecified site; R10.32 Left lower quadrant pain; Z98.84 Bariatric surgery status; Z98.1 Arthrodesis status
CPT/HCPCS: 74177; 87177; 87507; Q9967

== ENCOUNTER 2024-03-27 05:57 | Inpatient (IN) | payer MEDICARE ==
[2024-03-27] MEDS ORDERED: Atropine Sulfate 1 mg/10 ml Syringe ONE (06:31)
[2024-03-27 06:33] LABS: #Basophils 0.03 10x3/uL (0.0-0.2); %Basophils 0.6 % (0.0-1.0); %Eosinophils 1.3 % (0.0-10.0); %Lymphocytes 38.5 % (21.0-51.0); %Monocytes 6.8 % (0.0-10.0); %Neutrophils 52.4 % (42.0-75.0); Hematocrit 33.7 % (36.0-47.0); Hemoglobin 11.1 g/dL (12.0-16.0); Mean Corpuscular HGB CONC 32.9 g/dL (32.0-36.0); Mean Corpuscular Hemoglobin 27.9 pg (27.0-31.0); Mean Corpuscular Volume 84.7 fL (78.0-98.0); Mean Platelet Volume 12.7 fL (7.4-10.4); Platelet Count 177 10x3/uL (130-400); RBC Distribution Width 13.4 % (11.5-14.5); Red Blood Cell (RBC) Count 3.98 mill/uL (4.20-5.40)
[2024-03-27 06:52] LABS: Anion Gap 11 mmol/L (10-20); BUN (Urea Nitrogen) 21 mg/dL (9.8-20.1); Calc. Creatinine Clearance 0 mL/min (70-130); Calcium 8.1 mg/dL (7.8-10.44); Carbon Dioxide 21 mmol/L (23-31); Chloride 111 mmol/L (98-107); Estimated GFR 39; Glucose 108 mg/dL (83-110); Potassium 3.5 mmol/L (3.5-5.1); Sodium 139 mmol/L (136-145)
[2024-03-27 06:56] LABS: Troponin I Less than 0.010 ng/mL (< 0.028)
[2024-03-27] MEDS ORDERED: Aspirin Chewable 81 MG TAB ONE (09:17)
[2024-03-27 11:09] LABS: Troponin I Less than 0.010 ng/mL (< 0.028)
[2024-03-27] MEDS ORDERED: Ketorolac Tromethamine 30 MG (1 mL) VIAL IVP PRN (11:23)
[2024-03-27] MEDS ORDERED: Ondansetron ODT 4 MG TAB PO PRN ×2 (11:23→11:26)
[2024-03-27] MEDS ORDERED: Furosemide 20 MG TAB PO PRN (11:26)
[2024-03-27] MEDS ORDERED: Iopamidol-370 76% 500 ML MDV (1 ML CHARGE) ONE (11:27)
[2024-03-27] MEDS ORDERED: tiZANidine HCl 4 MG TAB PO PRN (11:36)
[2024-03-27] MEDS ORDERED: Acetaminophen 325 MG TAB ONE (13:55)
[2024-03-27] MEDS: Acetaminophen 325 MG TAB PO SCH (13:58)
[2024-03-27] MEDS: Pregabalin 50 MG CAP PO SCH (16:22)
[2024-03-27 17:06] LABS: Troponin I Less than 0.010 ng/mL (< 0.028)
[2024-03-27] MEDS: traZODone HCl 50 MG TAB PO SCH (20:35)
[2024-03-27] MEDS: Pregabalin 75 MG CAP PO SCH (20:35)
[2024-03-27] MEDS: clonazePAM 0.5 MG TAB PO SCH (20:35)
[2024-03-28 04:43] VITALS: BMI 23.9
[2024-03-28] MEDS: Levothyroxine Sodium 125 MCG TAB PO SCH (05:31)
[2024-03-28 06:22] LABS: #Basophils Less than 0.03 10x3/uL (0.0-0.2); %Basophils 0.3 % (0.0-1.0); %Eosinophils 2.6 % (0.0-10.0); %Lymphocytes 33.9 % (21.0-51.0); %Monocytes 9.8 % (0.0-10.0); %Neutrophils 53.1 % (42.0-75.0); Hematocrit 32.6 % (36.0-47.0); Hemoglobin 10.4 g/dL (12.0-16.0); Mean Corpuscular HGB CONC 31.9 g/dL (32.0-36.0); Mean Corpuscular Hemoglobin 27.3 pg (27.0-31.0); Mean Corpuscular Volume 85.6 fL (78.0-98.0); Mean Platelet Volume 13.2 fL (7.4-10.4); Platelet Count 157 10x3/uL (130-400); RBC Distribution Width 13.7 % (11.5-14.5); Red Blood Cell (RBC) Count 3.81 mill/uL (4.20-5.40)
[2024-03-28 06:32] LABS: Anion Gap 10 mmol/L (10-20); BUN (Urea Nitrogen) 17 mg/dL (9.8-20.1); Calc. Creatinine Clearance 59 mL/min (70-130); Calcium 8.1 mg/dL (7.8-10.44); Carbon Dioxide 25 mmol/L (23-31); Cardiac Risk 2.3 (Less than 4.5); Chloride 110 mmol/L (98-107); Cholesterol 136 mg/dl (< 200 Desired); Estimated GFR 61; Glucose 98 mg/dL (83-110); HDL Cholesterol 59 mg/dL (>60 Neg Risk); LDL Cholesterol, Calculated 66 mg/dL; Potassium 3.5 mmol/L (3.5-5.1); Sodium 141 mmol/L (136-145); Triglycerides 55 mg/dL (Less than 150)
[2024-03-28] MEDS: Amlodipine 5 MG TAB PO SCH (08:32)
[2024-03-28] MEDS: Atorvastatin Calcium 20 MG TAB PO SCH (08:32)
[2024-03-28] MEDS: Multivit, Therapeutic 1 TAB PO SCH (08:33)
[2024-03-28] MEDS: Enoxaparin 40 MG (0.4 mL) SYRINGE SC SCH (08:33)
[2024-03-28] MEDS: Pantoprazole DR 40 MG TAB PO SCH (08:33)
[2024-03-28] MEDS ORDERED: Regadenoson 0.4 MG/5 ML SYRINGE ONE (08:35)
[2024-03-28] MEDS ORDERED: Propranolol 40 MG TAB PO SCH (09:00)
[2024-03-28] MEDS: Potassium Chloride 20 MEQ TAB PO SCH (11:31)
[2024-03-28 12:11] LABS: Magnesium 1.8 mg/dL (1.6-2.6)
[2024-03-28] MEDS: clonazePAM 0.5 MG TAB PO SCH (20:16)
[2024-03-29] MEDS: HYDROcodone/Acetaminophen 5/325 mg Tablet PO PRN (03:56)
[2024-03-29] MEDS: Magnesium 2 GM/50 ML(in water) 2 GM in Premix 1 BAG IVPB SCH (08:29)
[2024-03-29] MEDS: Potassium Chloride 20 MEQ TAB PO SCH (08:31)
[2024-03-29] MEDS: Magnesium Oxide 400 MG TAB PO SCH ×2 (08:32→20:02)
[2024-03-29 08:40] LABS: #Basophils Less than 0.03 10x3/uL (0.0-0.2); %Basophils 0.3 % (0.0-1.0); %Eosinophils 2.1 % (0.0-10.0); %Lymphocytes 33.5 % (21.0-51.0); %Neutrophils 53.8 % (42.0-75.0); Hematocrit 32.7 % (36.0-47.0); Hemoglobin 10.4 g/dL (12.0-16.0); Mean Corpuscular HGB CONC 31.8 g/dL (32.0-36.0); Mean Corpuscular Hemoglobin 27.5 pg (27.0-31.0); Mean Corpuscular Volume 86.5 fL (78.0-98.0); Mean Platelet Volume 12.9 fL (7.4-10.4); Platelet Count 167 10x3/uL (130-400); RBC Distribution Width 13.8 % (11.5-14.5); Red Blood Cell (RBC) Count 3.78 mill/uL (4.20-5.40)
[2024-03-29 09:13] LABS: Iron 49 ug/dL (50-170); Iron Binding Capacity, Total 303 mcg/dL (265-497)
[2024-03-29 09:15] LABS: Anion Gap 11 mmol/L (10-20); BUN (Urea Nitrogen) 15 mg/dL (9.8-20.1); Calc. Creatinine Clearance 52 mL/min (70-130); Calcium 8.4 mg/dL (7.8-10.44); Carbon Dioxide 26 mmol/L (23-31); Chloride 110 mmol/L (98-107); Estimated GFR 53; Glucose 91 mg/dL (83-110); Iron 51 ug/dL (50-170); Iron Binding Capacity, Total 295 mcg/dL (265-497); Magnesium 1.8 mg/dL (1.6-2.6); Potassium 4.2 mmol/L (3.5-5.1); Sodium 143 mmol/L (136-145)
[2024-03-29 09:42] LABS: Ferritin 66.12 ng/mL (10-291)
[2024-03-29 15:59] LABS: Bacteria/HPF None Seen HPF (None Seen); Bilirubin Negative (Negative); Blood, Urine Negative (Negative); CAUTI Indications for Culture Pelvic or flank pain; Clarity Clear (Clear); Glucose, Urine (Dipstick) Normal (Negative); Ketone, Urine Negative (Negative); Leukocyte Negative Leu/uL (Negative); Nitrite Negative (Negative); Protein, Urine (Dipstick) Negative (Neg-Trace); RBC/HPF 0-3 HPF (0-3); Specific Gravity, Urine 1.008 (1.002-1.036); Squamous Epithelial None Seen HPF (0-3); Urobilinogen Normal mg/dL (Less than 2); WBC/HPF None Seen HPF (0-3); pH, Urine 5.5 (5.0-9.0)
[2024-03-29 16:01] LABS: Urine Culture Reflex No No
[2024-03-30 06:23] LABS: #Basophils 0.03 10x3/uL (0.0-0.2); %Basophils 0.7 % (0.0-1.0); %Eosinophils 1.7 % (0.0-10.0); %Lymphocytes 32.9 % (21.0-51.0); %Monocytes 8.4 % (0.0-10.0); %Neutrophils 55.8 % (42.0-75.0); Hematocrit 34.3 % (36.0-47.0); Hemoglobin 10.7 g/dL (12.0-16.0); Mean Corpuscular HGB CONC 31.2 g/dL (32.0-36.0); Mean Corpuscular Hemoglobin 27.4 pg (27.0-31.0); Mean Corpuscular Volume 87.7 fL (78.0-98.0); Mean Platelet Volume 12.5 fL (7.4-10.4); Platelet Count 180 10x3/uL (130-400); RBC Distribution Width 13.7 % (11.5-14.5); Red Blood Cell (RBC) Count 3.91 mill/uL (4.20-5.40)
[2024-03-30 06:41] LABS: Anion Gap 10 mmol/L (10-20); BUN (Urea Nitrogen) 18 mg/dL (9.8-20.1); Calc. Creatinine Clearance 57 mL/min (70-130); Calcium 8.5 mg/dL (7.8-10.44); Carbon Dioxide 28 mmol/L (23-31); Chloride 111 mmol/L (98-107); Estimated GFR 59; Glucose 74 mg/dL (83-110); Potassium 4.7 mmol/L (3.5-5.1); Sodium 144 mmol/L (136-145)
[2024-03-31 06:11] LABS: #Basophils Less than 0.03 10x3/uL (0.0-0.2); %Basophils 0.5 % (0.0-1.0); %Eosinophils 1.6 % (0.0-10.0); %Lymphocytes 35.6 % (21.0-51.0); %Monocytes 10.2 % (0.0-10.0); %Neutrophils 51.9 % (42.0-75.0); Hematocrit 34.5 % (36.0-47.0); Hemoglobin 10.7 g/dL (12.0-16.0); Mean Corpuscular Hemoglobin 27.2 pg (27.0-31.0); Mean Corpuscular Volume 87.8 fL (78.0-98.0); Mean Platelet Volume 13.2 fL (7.4-10.4); Platelet Count 188 10x3/uL (130-400); RBC Distribution Width 13.9 % (11.5-14.5); Red Blood Cell (RBC) Count 3.93 mill/uL (4.20-5.40)
[2024-03-31 06:21] LABS: Anion Gap 13 mmol/L (10-20); BUN (Urea Nitrogen) 22 mg/dL (9.8-20.1); Calc. Creatinine Clearance 56 mL/min (70-130); Calcium 8.6 mg/dL (7.8-10.44); Carbon Dioxide 25 mmol/L (23-31); Chloride 113 mmol/L (98-107); Estimated GFR 58; Glucose 76 mg/dL (83-110); Potassium 4.6 mmol/L (3.5-5.1); Sodium 146 mmol/L (136-145)
[2024-04-01 04:10] LABS: #Basophils Less than 0.03 10x3/uL (0.0-0.2); %Basophils 0.2 % (0.0-1.0); %Eosinophils 2.6 % (0.0-10.0); %Lymphocytes 39.9 % (21.0-51.0); %Monocytes 9.5 % (0.0-10.0); %Neutrophils 47.6 % (42.0-75.0); Hematocrit 32.5 % (36.0-47.0); Hemoglobin 10.4 g/dL (12.0-16.0); Mean Corpuscular Hemoglobin 27.6 pg (27.0-31.0); Mean Corpuscular Volume 86.2 fL (78.0-98.0); Mean Platelet Volume 12.2 fL (7.4-10.4); Platelet Count 165 10x3/uL (130-400); RBC Distribution Width 13.7 % (11.5-14.5); Red Blood Cell (RBC) Count 3.77 mill/uL (4.20-5.40)
[2024-04-01 04:35] LABS: Anion Gap 11 mmol/L (10-20); BUN (Urea Nitrogen) 18 mg/dL (9.8-20.1); Calc. Creatinine Clearance 65 mL/min (70-130); Calcium 8.1 mg/dL (7.8-10.44); Carbon Dioxide 27 mmol/L (23-31); Chloride 109 mmol/L (98-107); Estimated GFR 69; Glucose 93 mg/dL (83-110); Magnesium 2.1 mg/dL (1.6-2.6); Potassium 4.1 mmol/L (3.5-5.1); Sodium 143 mmol/L (136-145)
[2024-04-01 11:35] VITALS: BP 138/62; TEMP 98.7
[2024-04-02] MEDS ORDERED: Lisinopril 5 MG TAB PO SCH (09:00)
== END 2024-04-01 15:35 | DRG 313 ==
LOC: ERS 05:57 → ERHOLD 09:57 → 2NO 15:09 → OBSVTOIN 03-28 15:36
PROVIDERS: ADMIT Family Medicine; ATTEND Family Medicine
DX: R07.9 Chest pain, unspecified (principal); I50.32 Chronic diastolic (congestive) heart failure; N17.9 Acute kidney failure, unspecified; K55.1 Chronic vascular disorders of intestine; I11.0 Hypertensive heart disease with heart failure; I95.9 Hypotension, unspecified; R00.1 Bradycardia, unspecified; D63.8 Anemia in other chronic diseases classified elsewhere; I70.8 Atherosclerosis of other arteries; R94.31 Abnormal electrocardiogram [ECG] [EKG]; R53.81 Other malaise; G89.29 Other chronic pain; M54.9 Dorsalgia, unspecified; F32.A Depression, unspecified; F41.9 Anxiety disorder, unspecified; Z96.651 Presence of right artificial knee joint; E89.0 Postprocedural hypothyroidism; G62.9 Polyneuropathy, unspecified; K21.9 Gastro-esophageal reflux disease without esophagitis; M25.561 Pain in right knee; Z88.8 Allergy status to other drugs, medicaments and biological substances; Z79.899 Other long term (current) drug therapy; Z79.891 Long term (current) use of opiate analgesic; Z86.73 Personal history of transient ischemic attack (TIA), and cerebral infarction without residual deficits; Z79.890 Hormone replacement therapy; Z90.49 Acquired absence of other specified parts of digestive tract
CPT/HCPCS: 36415; 70450; 70551; 71045; 71250; 71275; 74174; 78452; 80048; 80061; 81001; 82607; 82728; 83540; 83550; 83735; 83880; 84443; 84484; 85025; 85046; 86850; 86900; 86901; 93005; 93010; 93017; 94760; 96360; A9502; J0461; J1650; J2785; J3475; Q9967